=== PATIENT | male | born 1935 | race Caucasian/White ===

== ENCOUNTER → 2018-02-27 | Outpatient (CLI) | payer MEDICARE ==
[~2018-02-27] MED LIST: ATENOLOL50 MG PO; COREG12.5 MG PO; COUMADIN2.5 MG PO; DIGOXIN250 MCG PO; ENALAPRIL-HCTZ1 EACH PO; FUROSEMIDE40 MG PO; LISINOPRIL10 MG PO; PLAVIX75 MG PO
--- NOTE | 2018-03-02 07:36 | Diagnostic Imaging Report ---
ADDENDUM #1 Dose modulation, iterative reconstruction, and/or weight based adjustment of the mA/kV was utilized to reduce the radiation dose to as low as reasonably achievable Signed by: Dr. Amanda Cano M.D. on 03/02/2018 9:46 AM ADDENDUM #2 Dose modulation, iterative reconstruction, and/or weight based adjustment of the mA/kV was utilized to reduce the radiation dose to as low as reasonably achievable. Signed by: Dr. Amanda Cano M.D. on 03/02/2018 3:28 PM ORIGINAL REPORT EXAMINATION: CT of the lumbar spine HISTORY: Low back pain radiating to the lower extremities with numbness and tingling for the last 5 days COMPARISON:None available TECHNIQUE: Multidetector helical axial images were obtained without contrast from L1 to S1. The images were reconstructed using bone and soft tissue algorithms and were viewed in axial, sagittal, and coronal planes. FINDINGS: Alignment: Normal alignment and lordosis. Vertebral bodies: Normal height and density. Paraspinal muscles: Normal. Intervertebral disks: L1-L2: Minimal symmetric disc bulge and retrolisthesis without canal or foraminal stenoses. L2-L3: Normal. L3-L4: Normal. L4-L5: Minimal symmetric disc bulge and facet arthrosis without canal or foraminal stenoses. L5-S1: Slightly asymmetric to the right disc osteophyte and mild facet arthrosis. Mild foraminal narrowing on the right side.. Sacroiliac joints: Degenerative changes with bridging osteophyte on the left side. IMPRESSION: Mild degenerative foraminal stenosis at L5-S1 without evidence of nerve root compression. Otherwise no significant degenerative changes, no spinal canal or foraminal stenosis. Signed by: Dr. Amanda Cano M.D. on 03/02/2018 7:32 AM
== END ==
LOC: CT 15:09
PROVIDERS: ATTEND Family Medicine
DX: S39.012A Strain of muscle, fascia and tendon of lower back, initial encounter (principal)
CPT/HCPCS: 72131

== ENCOUNTER → 2018-03-27 | Day surgery (SDC) | payer MEDICARE ==
[2018-03-26 14:38] LABS: BASOPHILS # (AUTO) 0.1 (0.0-0.1); BASOPHILS % 0.6 % (0.0-1.0); EOSINOPHILS # (AUTO) 0.3 (0.0-0.4); EOSINOPHILS % 3.9 % (0.0-6.0); HEMATOCRIT 49.8 % (38.2-49.6); HEMOGLOBIN 16.2 g/dL (14.0-18.0); LYMPHOCYTES # (AUTO) 1.2 (1.0-3.2); LYMPHOCYTES % 14.4 % (18.0-39.1); MEAN CORPUSCULAR HGB CONC 32.5 g/dL (31-35); MEAN CORPUSCULAR VOLUME 86.2 fL (81-99); MONOCYTES # (AUTO) 1.1 (0.2-0.8); NEUTROPHILS # (AUTO) 5.4 (2.1-6.9); NEUTROPHILS % 66.6 % (38.7-80.0); PLATELET COUNT 200 x10e3/uL (140-360); RED BLOOD COUNT 5.78 x10e6/uL (4.3-5.7); RED CELL DISTRIBUTION WIDTH 14.6 % (11.7-14.4)
[2018-03-26 14:53] LABS: INR 1.19; PROTHROMBIN TIME 14.2 seconds (11.9-14.5)
[2018-03-26 14:58] LABS: ALANINE AMINOTRANSFERASE 32 IU/L (0-55); ALBUMIN 3.8 g/dL (3.5-5.0); ALBUMIN/GLOBULIN RATIO 1.1 (0.8-2.0); ALKALINE PHOSPHATASE 67 IU/L (40-150); ANION GAP 12.3 mmol/L (8-16); BLOOD UREA NITROGEN 12 mg/dL (7-26); BUN/CREATININE RATIO 13 (6-25); CALCIUM 9.7 mg/dL (8.4-10.2); CARBON DIOXIDE 31 mmol/L (22-29); CHLORIDE 100 mmol/L (98-107); CHOL/HDL RATIO 3.4 (3.9-4.7); CHOLESTEROL 105 MD/DL (0-199); CREATININE, SERUM 0.93 mg/dL (0.72-1.25); EST GLOMERULAR FILTRATION RATE > 60 ML/MIN (60-); GLUCOSE 98 mg/dL (74-118); HDL CHOLESTEROL 31 MG/DL (40-60); LDL CHOLESTEROL 46 MG/DL (60-130); POTASSIUM 4.3 mmol/L (3.5-5.1); SODIUM 139 mmol/L (136-145); TRIGLYCERIDES 142 MG/DL (0-149)
[~2018-03-27] VITALS: Ht 172.7 cm; Wt 83.9 kg
[~2018-03-27] MED LIST changes: +ALEVE220 M1; +ASPIRIN81 MG; +ATORVASTATIN CA20 MG PO; +FENTANYL CITRATE/PF 100MCG/2 ML INJ ONE; +HEPARIN SOD/SOD CHLORIDE 2,000 ML ONE; +IOPAMIDOL 370 MG/ML 200 ML INFUS..BTL INJ ONE; +LIDOCAINE HCL 2% LOCAL 20 ML VIAL ONE; +MIDAZOLAM HCL 2 MG/2 ML VIAL ONE; +OMEGA 3 FISH O1 EACH; +SODIUM CHLORIDE 0.9% 1000ML 1,000 ML ONE; +STOOL SOFT-STI1 EACH; +TEMAZEPAM15 MG
[2018-03-27 12:00] VITALS: BP 162/82
[2018-03-27 17:11] VITALS: BP 152/87
[2018-03-27 17:15] VITALS: BP 159/87
[2018-03-27 17:30] VITALS: BP 147/109
[2018-03-27 17:45] VITALS: BP 160/93
[2018-03-27 18:00] VITALS: BP_SYST 170; BP_SYST 172; BP_DIAS 80; BP_DIAS 90
--- NOTE | 2018-03-28 00:19 | Operative Report ---
DATE OF PROCEDURE: March 27, 2018 INDICATIONS: Coronary artery disease. Abnormal stress test. PROCEDURES PERFORMED 1. Left heart catheterization. 2. Selective coronary angiography. 3. Left ventriculography. 4. Deployment of right groin VASCADE closure device. COMPLICATIONS: None. RECOMMENDATIONS: Dual antiplatelet therapy. Assessment for viability of the anterior wall. Access obtained in the right femoral artery. A 6-Irish sheath was placed. Diagnostic coronary angiogram revealed patent left main. Left anterior descending artery is completely occluded in its proximal portion. Circumflex was codominant, 50% or less stenosis in an obtuse margin branch. Right coronary artery was codominant, less than 20% stenosis. LV end-diastolic pressure of 10. LV ejection fraction 25% with dyskinesis of the anterior apical wall, grade 2 collaterals from the right and left coronary system supplied the distal LAD faintly. Right groin repaired using VASCADE. Patient was discharged home the same day. Job#: [id number] ROSCOE
== END | disposition home or self-care (01) ==
LOC: CATH LAB 11:50
PROVIDERS: ATTEND Internal Medicine Interventional Cardiology
DX: I25.118 Atherosclerotic heart disease of native coronary artery with other forms of angina pectoris (principal); I48.91 Unspecified atrial fibrillation; I11.0 Hypertensive heart disease with heart failure; I50.9 Heart failure, unspecified; R94.39 Abnormal result of other cardiovascular function study; G47.33 Obstructive sleep apnea (adult) (pediatric); Z01.812 Encounter for preprocedural laboratory examination; Z79.01 Long term (current) use of anticoagulants; Z79.82 Long term (current) use of aspirin; Z86.74 Personal history of sudden cardiac arrest; Z95.810 Presence of automatic (implantable) cardiac defibrillator; Z82.49 Family history of ischemic heart disease and other diseases of the circulatory system
CPT/HCPCS: 36415; 80053; 80061; 85025; 85610; 93458; C1760; J2001; J2250; J7030; Q9967

== ENCOUNTER → 2018-04-13 | Outpatient (CLI) | payer MEDICARE ==
[~2018-04-13] MED LIST changes: -FENTANYL CITRATE/PF 100MCG/2 ML INJ ONE; -HEPARIN SOD/SOD CHLORIDE 2,000 ML ONE; -IOPAMIDOL 370 MG/ML 200 ML INFUS..BTL INJ ONE; -LIDOCAINE HCL 2% LOCAL 20 ML VIAL ONE; -MIDAZOLAM HCL 2 MG/2 ML VIAL ONE; +REGADENOSON 0.4 MG/5 ML SYR IV ONE; -SODIUM CHLORIDE 0.9% 1000ML 1,000 ML ONE
== END ==
LOC: NM 10:39
PROVIDERS: ATTEND Internal Medicine Interventional Cardiology
DX: I50.9 Heart failure, unspecified (principal); I20.9 Angina pectoris, unspecified
CPT/HCPCS: 78452; 93017; A9505; A9502

== ENCOUNTER 2019-12-20 08:24 | Emergency (ER) | payer MEDICARE ==
[~2019-12-20] VITALS: Ht 172.7 cm; Wt 83.9 kg
[~2019-12-20 08:24] MED LIST changes: -REGADENOSON 0.4 MG/5 ML SYR IV ONE
--- OUTSIDE RECORDS SUMMARY | 2019-12-20 08:43 | XMS REPORT | Continuity of Care Document ---
Author Author [facility] t Organization [facility] Address [address] [place] [address] Phone Unavailable Care Team Providers Care Professional Employer Consultant Name Role Phone CAMACHO VIDES Attphys Unavailable Problems This patient has no known problems. Allergies, Adverse Reactions, Alerts This patient has no known allergies or adverse reactions. Medications This patient has no known medications. Procedures This patient has no known procedures. Results Test Description Test Time Test Comments Results Result Comments Source CT LUMBAR SPINE WO 2018-03-02 07:26:00 [facility] [address] [place], [place] [address] Patient Name: ZURDO STREETER MR #: [id number] : 1935 Age/Sex: 82/M Req #: [id number] Adm Physician: Ordered by: CAMACHO VIDES DO Report #: [id number] Location: CT Room/Bed: Procedure: [id number] CT/CT LUMBAR SPINE WO Exam Date: 02/27/18 Exam Time: 1551 REPORT STATUS: Signed ADDENDUM #1 Dose modulation, iterative reconstruction, and/or weight based adjustment of the mA/kV was utilized to reduce the radiation dose to as low as reasonably achievable Signed by: Dr. Schuyler Cano M.D. on 03/02/2018 9:46 AM ADDENDUM #2 Dose modulation, iterative reconstruction, and/or weight based adjustment of the mA/kV was utilized to reduce the radiation dose to as low as reasonably achievable. Signed by: Dr. Schuyler Cano M.D. on 03/02/2018 3:28 PM ORIGINAL REPORT EXAMINATION: CT of the lumbar spine HISTORY: Low back pain radiating to the lower extremities with numbness and tingling for the last 5 days COMPARISON:None available TECHNIQUE: Multidetector helical axial images were obtained without contrast from L1 to S1. The images were reconstructed using bone and soft tissue algorithms and were viewed in axial, sagittal, and coronal planes. FINDINGS: Alignment: Normal alignment and lordosis. Vertebral bodies: Normal height and density. Paraspinal muscles: Normal. Intervertebral disks: L1-L2: Minimal symmetric disc bulge and retrolisthesis without canal or foraminal stenoses. L2-L3: Normal. L3-L4: Normal. L4-L5: Minimal symmetric disc bulge and facet arthrosis without canal or foraminal stenoses. L5-S1: Slightly asymmetric to the right disc osteophyte and mild facet arthrosis. Mild foraminal narrowing on the right side.. Sacroiliac joints: Degenerative changes with bridging osteophyte on the left side. IMPRESSION: Mild degenerative foraminal stenosis at L5-S1 without evidence of nerve root compression. Otherwise no significant degenerative changes, no spinal canal or foraminal stenosis. Signed by: Dr. Schuyler Cano M.D. on 03/02/2018 7:32 AM Dictated By: SCHUYLER CANO MD [id number] Transcribed By: MATY on 03/02/18 1777 COPY TO: CAMACHO VIDES DO
[2019-12-20] MEDS ORDERED: SODIUM CHLORIDE 0.9% 1000ML 1,000 ML IV STA ×2 (08:44→10:16)
[2019-12-20] MEDS ORDERED: ASPIRIN 81 MG CHEW TAB PO ONE (08:45)
--- NOTE | 2019-12-20 08:59 | Emergency Department Note ---
History of Present Illnes History of Present Illness Chief Complaint: COVID PUI History of Present Illness This is a 84 year old male . 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 Any updates have been documented here. Past Medical History Recent Fever: No Clinical Suspicion of Infectio: Yes New/Unexplained Change in Ment: No Other Medical History: PROSTAT pacemaker Other Surgery: HEMROIDS, SKIN CA, CARDIAC STENTS Social History Smoking Cessation: Never Smoker Alcohol Use: None Any Illegal Drug Use: No TB Exposure/Symptoms: No Physically hurt or threatened: No Family History Family history of heart diseas: No Other Last Tetanus: UTD Any Pre-Existing Lines (PICC,: No Review of Systems Review of Systems Constitutional: weakness EENTM: no symptoms Cardiovascular: other (minimal chest pressure ) Respiratory: other (minial sob) Gastrointestinal: no symptoms Genitourinary: no symptoms Musculoskeletal: no symptoms Neurological: no symptoms, other (near syncope reported to day) Psychological: no symptoms Endocrine: no symptoms Hematological/Lymphatic: no symptoms Review of other systems All other systems reviewed and negative. Physical Exam Related Data Allergies: Coded Allergies: No Known Allergies (Unverified , 07/06/13) Vital signs reviewed: Yes Physical Exam CONSTITUTIONAL Constitutional: well-developed, well-nourished HENT HENT: normocephalic, atraumatic, oropharynx clear/moist, nose normal HENT L/R: left ext ear normal, right ext ear normal EYES Eyes: PERRL, conjunctivae normal NECK Neck: ROM normal PULMONARY Pulmonary: effort normal, breath sounds normal; respiratory distress, rales, rhonchi, chest tenderness CARDIOVASCULAR Cardiovascular: regular rhythm, heart sounds normal, capillary refill normal, normal rate; LLE edema, RLE edema GASTROINTESTINAL Abdominal: soft, nontender, bowel sounds normal GENITOURINARY Genitourinary: exam deferred SKIN Skin: warm, dry MUSCULOSKELETAL Musculoskeletal: ROM normal NEUROLOGICAL Neurological: alert, oriented x 3, no gross motor or sensory deficits, other (reported near syncope today) PSYCHOLOGICAL Psychological: mood/affect normal, judgement normal Results Laboratory Laboratory Laboratory Tests Test 12/20/19 10:42 12/20/19 09:48 12/20/19 09:06 Group A Streptococcus Screen Negative (NEGATIVE) Lactic Acid Level 2.0 mmol/L (0.5-2.0) White Blood Count 6.99 x10e3/uL (4.8-10.8) Red Blood Count 5.54 x10e6/uL (4.3-5.7) Hemoglobin 15.2 g/dL (14.0-18.0) Hematocrit 47.7 % (38.2-49.6) Mean Corpuscular Volume 86.1 fL (81-99) Mean Corpuscular Hemoglobin 27.4 pg (28-32) Mean Corpuscular Hemoglobin Concent 31.9 g/dL (31-35) Red Cell Distribution Width 15.1 % (11.7-14.4) Platelet Count 153 x10e3/uL (140-360) Neutrophils (%) (Auto) 93.3 % (38.7-80.0) Lymphocytes (%) (Auto) 3.6 % (18.0-39.1) Monocytes (%) (Auto) 0.7 % (4.4-11.3) Eosinophils (%) (Auto) 1.6 % (0.0-6.0) Basophils (%) (Auto) 0.4 % (0.0-1.0) Neutrophils # (Auto) 6.5 (2.1-6.9) Lymphocytes # (Auto) 0.3 (1.0-3.2) Monocytes # (Auto) 0.1 (0.2-0.8) Eosinophils # (Auto) 0.1 (0.0-0.4) Basophils # (Auto) 0.0 (0.0-0.1) Absolute Immature Granulocyte (auto 0.03 x10e3/uL (0-0.1) Prothrombin Time 19.4 seconds (11.9-14.5) Prothromb Time International Ratio 1.53 Activated Partial Thromboplast Time 27.5 seconds (23.8-35.5) Urine Color Yellow (YELLOW) Urine Clarity Clear (CLEAR) Urine pH 7 (5 - 7) Urine Specific [place] 1.020 (1.010-1.025) Urine Protein Negative (NEGATIVE) Urine Glucose (UA) Negative (NEGATIVE) Urine Ketones Negative (NEGATIVE) Urine Blood Negative (NEGATIVE) Urine Nitrite Negative (NEGATIVE) Urine Bilirubin Negative (NEGATIVE) Urine Urobilinogen 0.2 mg/dL (0.2 - 1) Urine Leukocyte Esterase Negative (NEGATIVE) Urine RBC None /HPF (0-5) Urine WBC 0-5 /HPF (0-5) Urine Epithelial Cells Rare /LPF (NONE) Urine Bacteria Rare /HPF (NONE) Sodium Level 143 mmol/L (136-145) Potassium Level 3.6 mmol/L (3.5-5.1) Chloride Level 105 mmol/L (98-107) Carbon Dioxide Level 25 mmol/L (22-29) Anion Gap 16.6 mmol/L (8-16) Blood Urea Nitrogen 12 mg/dL (7-26) Creatinine 1.09 mg/dL (0.72-1.25) Estimat Glomerular Filtration Rate > 60 ML/MIN (60-) BUN/Creatinine Ratio 11 (6-25) Glucose Level 98 mg/dL (74-118) Calcium Level 9.6 mg/dL (8.4-10.2) Magnesium Level 1.6 MG/DL (1.3-2.1) Total Bilirubin 2.3 mg/dL (0.2-1.2) Aspartate Amino Transf (AST/SGOT) 19 IU/L (5-34) Alanine Aminotransferase (ALT/SGPT) 23 IU/L (0-55) Alkaline Phosphatase 71 IU/L (40-150) Creatine Kinase 56 IU/L (30-200) Creatine Kinase MB < 1.00 ng/mL (0-4.3) Troponin I < 0.05 ng/mL (0.0-0.40) B-Type Natriuretic Peptide 464.5 pg/mL (0-100) Total Protein 7.3 g/dL (6.5-8.1) Albumin 4.0 g/dL (3.5-5.0) Globulin 3.3 g/dL (2.3-3.5) Albumin/Globulin Ratio 1.2 (0.8-2.0) Thyroid Stimulating Hormone (TSH) 2.665 uIU/mL (0.350-4.940) Laboratory Tests Test 12/20/19 09:06 White Blood Count 6.99 x10e3/uL (4.8-10.8) Red Blood Count 5.54 x10e6/uL (4.3-5.7) Hemoglobin 15.2 g/dL (14.0-18.0) Hematocrit 47.7 % (38.2-49.6) Mean Corpuscular Volume 86.1 fL (81-99) Mean Corpuscular Hemoglobin 27.4 pg (28-32) Mean Corpuscular Hemoglobin Concent 31.9 g/dL (31-35) Red Cell Distribution Width 15.1 % (11.7-14.4) Platelet Count 153 x10e3/uL (140-360) Neutrophils (%) (Auto) 93.3 % (38.7-80.0) Lymphocytes (%) (Auto) 3.6 % (18.0-39.1) Monocytes (%) (Auto) 0.7 % (4.4-11.3) Eosinophils (%) (Auto) 1.6 % (0.0-6.0) Basophils (%) (Auto) 0.4 % (0.0-1.0) Neutrophils # (Auto) 6.5 (2.1-6.9) Lymphocytes # (Auto) 0.3 (1.0-3.2) Monocytes # (Auto) 0.1 (0.2-0.8) Eosinophils # (Auto) 0.1 (0.0-0.4) Basophils # (Auto) 0.0 (0.0-0.1) Absolute Immature Granulocyte (auto 0.03 x10e3/uL (0-0.1) Prothrombin Time 19.4 seconds (11.9-14.5) Prothromb Time International Ratio 1.53 Activated Partial Thromboplast Time 27.5 seconds (23.8-35.5) Urine Color Yellow (YELLOW) Urine Clarity Clear (CLEAR) Urine pH 7 (5 - 7) Urine Specific [place] 1.020 (1.010-1.025) Urine Protein Negative (NEGATIVE) Urine Glucose (UA) Negative (NEGATIVE) Urine Ketones Negative (NEGATIVE) Urine Blood Negative (NEGATIVE) Urine Nitrite Negative (NEGATIVE) Urine Bilirubin Negative (NEGATIVE) Urine Urobilinogen 0.2 mg/dL (0.2 - 1) Urine Leukocyte Esterase Negative (NEGATIVE) Urine RBC None /HPF (0-5) Urine WBC 0-5 /HPF (0-5) Urine Epithelial Cells Rare /LPF (NONE) Urine Bacteria Rare /HPF (NONE) Sodium Level 143 mmol/L (136-145) Potassium Level 3.6 mmol/L (3.5-5.1) Chloride Level 105 mmol/L (98-107) Carbon Dioxide Level 25 mmol/L (22-29) Anion Gap 16.6 mmol/L (8-16) Blood Urea Nitrogen 12 mg/dL (7-26) Creatinine 1.09 mg/dL (0.72-1.25) Estimat Glomerular Filtration Rate > 60 ML/MIN (60-) BUN/Creatinine Ratio 11 (6-25) Glucose Level 98 mg/dL (74-118) Calcium Level 9.6 mg/dL (8.4-10.2) Magnesium Level 1.6 MG/DL (1.3-2.1) Total Bilirubin 2.3 mg/dL (0.2-1.2) Aspartate Amino Transf (AST/SGOT) 19 IU/L (5-34) Alanine Aminotransferase (ALT/SGPT) 23 IU/L (0-55) Alkaline Phosphatase 71 IU/L (40-150) Creatine Kinase 56 IU/L (30-200) Creatine Kinase MB < 1.00 ng/mL (0-4.3) Troponin I < 0.05 ng/mL (0.0-0.40) B-Type Natriuretic Peptide 464.5 pg/mL (0-100) Total Protein 7.3 g/dL (6.5-8.1) Albumin 4.0 g/dL (3.5-5.0) Globulin 3.3 g/dL (2.3-3.5) Albumin/Globulin Ratio 1.2 (0.8-2.0) Thyroid Stimulating Hormone (TSH) 2.665 uIU/mL (0.350-4.940) Lab results reviewed: Yes Imaging Impressions CXR IMPRESSION: Mild elevation of the right hemidiaphragm. Otherwise, no acute cardiac pulmonary process identified. Signed by: Dr. Loyd Hodge MD on 12/20/2019 10:[address] brain Impression: No acute intracranial abnormalities. Nonspecific inflammatory changes of the sphenoid sinuses Chronic findings: 1. Mild generalized volume loss. 2. Mild supratentorial white matter small vessel ischemic changes. Signed by: DR Pascual Devi M.D. 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 Assessment & Plan Reassessment Reassessment time: 08:57 Reassessment 84y m presented to ed c/o generalized weakness fatigue n/v x2 sx- reported near syncope today- reports has had some minimal chest pressure - no lower ext sw elling noted o2 sat 92% rm air - sts has had slight cough - suspect infection - lab ekg cxr ct brain blood cultures lactic flu strep covid ordered pt medicated w/ ns 1 liter and asa suspect sepsis SIRs criteria meet hr 92 resp 28 - o2 sat 92% blood culture / lactic / zosyn ordered severe sepsis Venkatesh 2.3 pt medicated w/ lovenox and dig level ordered spoke w/ Dr Marquez will accept transfer - [facility] Assessment & Plan Final Impression: (1) Sepsis (2) Near syncope (3) Weakness Assessment & Plan discussed lab ekg cxr ct brain results plan of care and need for admit / transfer spoke w/ Dr Felipe Echevarria at [facility] Depart Disposition: TRANS TO OTHER [facility] Home Meds Reported Medications Carvedilol (CARVEDILOL) 12.5 Mg Tablet, 12.5 MG PO BID 12/20/19 Warfarin Sodium (WARFARIN SODIUM) 2 Mg Tablet, 2 MG PO DAILY 12/20/19 Digoxin (DIGOXIN) 125 Mcg Tablet, 250 MCG PO DAILY 12/20/19 Aspirin (ASPIRIN) 81 Mg Tab.chew 03/26/18 Atorvastatin Calcium (ATORVASTATIN CALCIUM) 20 Mg Tablet, 40 MG PO HS, #30 TAB 03/26/18 Furosemide (FUROSEMIDE) 40 Mg Tablet, 40 MG PO Daily, #30 TAB 03/17/15 Lisinopril (LISINOPRIL) 10 Mg Tablet, 5 MG PO DAILY, #30 TAB 03/17/15 Discontinued Reported Medications Amiodarone Hcl (AMIODARONE HCL) 200 Mg Tablet, 20 MG PO DAILY 12/20/19 [place]-3 Fatty Acids/Fish Oil (OMEGA 3 FISH OIL SOFTGEL) 1 Each Capsule. 03/26/18 Naproxen Sodium (ALEVE) 220 Mg Capsule 03/26/18 Sennosides/Docusate Sodium (STOOL SOFT-STIMULANT LAX TAB) 1 Each Tablet 03/26/18 Temazepam (TEMAZEPAM) 15 Mg Capsule 03/26/18 Carvedilol (COREG) 12.5 Mg Tab, 12.5 MG PO BID 03/17/15 Digoxin (DIGOXIN) 250 Mcg Tablet, 0.25 MCG PO DAILY 03/17/15 Warfarin Sodium (COUMADIN) 2.5 Mg Tablet, 1 TAB PO DAILY 05/19/12 Medications in the ED Aspirin 81 mg PRN ONCE PO ; Start 12/20/19 at 08:45; Stop 12/20/19 at 08:51; Status DC Sodium Chloride 1,000 ml @ 0 mls/hr Q0M STAT IV ; Start 12/20/19 at 08:44; Stop 12/20/19 at 08:48; Status DC LAURIE SAGE Dec 20, 2019 08:59
[2019-12-20 09:18] LABS: BASOPHILS % 0.4 % (0.0-1.0); EOSINOPHILS # (AUTO) 0.1 (0.0-0.4); EOSINOPHILS % 1.6 % (0.0-6.0); HEMATOCRIT 47.7 % (38.2-49.6); HEMOGLOBIN 15.2 g/dL (14.0-18.0); LYMPHOCYTES # (AUTO) 0.3 (1.0-3.2); LYMPHOCYTES % 3.6 % (18.0-39.1); MEAN CORPUSCULAR HEMOGLOBIN 27.4 pg (28-32); MEAN CORPUSCULAR HGB CONC 31.9 g/dL (31-35); MEAN CORPUSCULAR VOLUME 86.1 fL (81-99); MONOCYTES # (AUTO) 0.1 (0.2-0.8); MONOCYTES % 0.7 % (4.4-11.3); NEUTROPHILS # (AUTO) 6.5 (2.1-6.9); NEUTROPHILS % 93.3 % (38.7-80.0); PLATELET COUNT 153 x10e3/uL (140-360); RED BLOOD COUNT 5.54 x10e6/uL (4.3-5.7); RED CELL DISTRIBUTION WIDTH 15.1 % (11.7-14.4)
[2019-12-20] MEDS ORDERED: PIPER-TAZ 3.375 GM 50 ML IV ONE (09:30)
[2019-12-20] MEDS ORDERED: DIGOXIN125 MCG PO (09:31)
[2019-12-20] MEDS ORDERED: CARVEDILOL12.5 MG PO (09:31)
[2019-12-20] MEDS ORDERED: AMIODARONE HCL200 MG PO (09:31)
[2019-12-20] MEDS ORDERED: WARFARIN SODIUM2 MG PO (09:31)
[2019-12-20 09:38] LABS: INR 1.53; PARTIAL THROMBOPLASTIN TIME 27.5 seconds (23.8-35.5); PROTHROMBIN TIME 19.4 seconds (11.9-14.5)
[2019-12-20 09:39] LABS: ALANINE AMINOTRANSFERASE 23 IU/L (0-55); ALBUMIN/GLOBULIN RATIO 1.2 (0.8-2.0); ALKALINE PHOSPHATASE 71 IU/L (40-150); ANION GAP 16.6 mmol/L (8-16); BLOOD UREA NITROGEN 12 mg/dL (7-26); BUN/CREATININE RATIO 11 (6-25); CALCIUM 9.6 mg/dL (8.4-10.2); CARBON DIOXIDE 25 mmol/L (22-29); CHLORIDE 105 mmol/L (98-107); CREATINE KINASE 56 IU/L (30-200); CREATININE, SERUM 1.09 mg/dL (0.72-1.25); EST GLOMERULAR FILTRATION RATE > 60 ML/MIN (60-); GLUCOSE 98 mg/dL (74-118); MAGNESIUM 1.6 MG/DL (1.3-2.1); POTASSIUM 3.6 mmol/L (3.5-5.1); SODIUM 143 mmol/L (136-145)
[2019-12-20 09:59] LABS: CREATINE KINASE MB < 1.00 ng/mL (0-4.3)
[2019-12-20 10:03] LABS: BILIRUBIN,URINE NEGATIVE (NEGATIVE); CLARITY,URINE CLEAR (CLEAR); COLOR,URINE YELLOW (YELLOW); KETONES,URINE NEGATIVE (NEGATIVE); LEUKOCYTE ESTERASE ,URINE NEGATIVE (NEGATIVE); NITRITE,URINE NEGATIVE (NEGATIVE); PROTEIN,URINE DIPSTICK NEGATIVE (NEGATIVE); URINE UROBILINOGEN 0.2 mg/dL (0.2 - 1)
--- NOTE | 2019-12-20 10:04 | Diagnostic Imaging Report ---
EXAM: CHEST SINGLE (PORTABLE) DATE: 12/20/2019 9:45 AM INDICATION: Weakness COMPARISON: None available. FINDINGS: Left-sided AICD identified in place. There is mild elevation of the right hemidiaphragm and associated right basilar atelectasis. There is no evidence for large focal consolidation, pneumothorax, or significant pleural effusion. The cardiomediastinal silhouette appears magnified by technique but otherwise unremarkable. No acute osseous abnormality is identified. There are surrounding soft tissues are unremarkable. IMPRESSION: Mild elevation of the right hemidiaphragm. Otherwise, no acute cardiac pulmonary process identified. Signed by: Dr. Loyd Hodge MD on 12/20/2019 10:00 AM
[2019-12-20] MEDS ORDERED: ENOXAPARIN INJ 80 MG/0.8 ML SYR SC STA (10:12)
[2019-12-20 10:13] LABS: THYROID STIMULATING HORMONE 2.665 uIU/mL (0.350-4.940)
[2019-12-20 10:17] LABS: BACTERIA,URINE RARE /HPF; EPITHELIAL CELLS,URINE RARE /LPF; WBC,URINE (MAN) 0-5 /HPF (0-5)
--- NOTE | 2019-12-20 10:45 | Diagnostic Imaging Report ---
History:Weakness Comparison studies:None Technique: Axial images were obtained from the skull base to the vertex. Coronal and sagittal images reconstructed from the axial data. Intravenous contrast: None Dose modulation, iterative reconstruction, and/or weight based adjustment of the mA/kV was utilized to reduce the radiation dose to as low as reasonably achievable. Findings: Scalp/skull: No abnormalities. Extra-axial spaces: No masses. No fluid collections. Brain sulci: Mildly prominent. Ventricles: Mild compensatory dilatation. No hydrocephalus. Parenchyma: Scattered subtle hypodensities in the supratentorial white matter are small vessel ischemic changes. 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 No masses, hemorrhage, acute or chronic cortical vascular insults. Sellar/suprasellar region: No abnormalities. Craniocervical junction: Patent foramen magnum. No Chiari one malformation. Incidental findings: Atherosclerotic calcifications in the carotid siphons and vertebral arteries . Partial opacification of the bilateral right more the left sphenoid sinuses. Impression: No acute intracranial abnormalities. Nonspecific inflammatory changes of the sphenoid sinuses Chronic findings: 1. Mild generalized volume loss. 2. Mild supratentorial white matter small vessel ischemic changes. Signed by: DR Pascual Devi M.D. on 12/20/2019 10:41 AM
[2019-12-20 11:09] LABS: STREPTOCOCCUS GRP A ANTIGEN NEGATIVE (NEGATIVE)
--- NOTE | 2019-12-20 11:21 | NUR ---
called [facility] for transport.
[2019-12-20 11:22] LABS: INFLUENZAE A&B ANTIGEN (RAPID) NEGATIVE (NEGATIVE)
--- NOTE | 2019-12-20 11:54 | NUR ---
CALLING REPORT TO [facility]
--- NOTE | 2019-12-20 12:02 | NUR ---
ATTEMPTED TO CALL REPORT AND WAS ADVISED THAT THEY COULD NOT ACCEPT THE PATIENT DUE TO STAFFING. WILL ESCALATE TO [facility] AND [facility]VISE.
[2019-12-20 12:09] LABS: ANISOCYTOSIS SLIG; EOSINOPHILS % (MANUAL) 1 % (0-7); LYMPHOCYTES % (MANUAL) 4 % (19-48); MONOCYTES % (MANUAL) 1 % (3.4-9.0); NEUTROPHILS % (MANUAL) 94 % (40-74); PLATELET ESTIMATE ADEQUATE; PLATELET MORPHOLOGY COMMENT NORMAL; RBC MORPHOLOGY COMMENT NORMAL
[2019-12-20 13:09] VITALS: BP 124/68
--- NOTE | 2019-12-20 13:09 | NUR ---
REPORT TO SOHAN AT [facility].
== END 2019-12-20 13:12 | disposition other institution (70) ==
LOC: ER 08:40
DX: R53.1 Weakness (principal); A41.9 Sepsis, unspecified organism; R07.89 Other chest pain; R55 Syncope and collapse; Z11.59 Encounter for screening for other viral diseases; Z95.5 Presence of coronary angioplasty implant and graft; Z85.828 Personal history of other malignant neoplasm of skin
CPT/HCPCS: 36415; 70450; 71045; 80053; 80162; 81001; 82550; 82553; 83518; 83605; 83735; 83880; 84443; 84484; 85025; 85610; 85730; 87040; 87070; 87071; 87086; 87186; 87205; 87400; 87635; 93005; 99284; J1650; J2543; J7030

== ENCOUNTER → 2020-02-11 | Outpatient (CLI) | payer MEDICARE ==
[~2020-02-11] MED LIST changes: +AMIODARONE HCL200 MG PO; +CARVEDILOL12.5 MG PO; +DIGOXIN125 MCG PO; +IOPAMIDOL 370 MG/ML 200 ML INFUS..BTL INJ ONE; +SODIUM CHLORIDE 0.9% 100 ML ONE; +SODIUM CHLORIDE 0.9% 500ML 500 ML ONE; +WARFARIN SODIUM2 MG PO
[2020-02-11 08:15] LABS: CREATININE, SERUM 1.25 mg/dL (0.72-1.25)
--- NOTE | 2020-02-11 10:07 | Diagnostic Imaging Report ---
Abdomen and Pelvis CTA WITH IV CONTRAST. INDICATION: Abdominal pain, claudication COMPARISON: None. TECHNIQUE: Abdomen and pelvis was scanned utilizing a multidetector helical scanner from the lung base to the pubic symphysis before and after administration of IV contrast. Coronal and sagittal reformations were obtained. 3D post-processing of the images was performed, and the post-processed images were used in interpretation. CTA runoff protocol was performed. IV CONTRAST: 100mL of Isovue 370 ORAL CONTRAST: None RADIATION DOSE: Total DLP: 346 mGy*cm FINDINGS: VESSELS: There are moderate calcified and noncalcified atherosclerotic plaques in the aorta and its major branches. There is no evidence of a flap within the aorta to suggest a dissection. 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 The common hepatic artery arises from the SMA. The SMA and CALI are widely patent. There is a single right renal artery and a single left renal artery, both of which are patent. NON-VASCULAR: LOWER THORAX: Trace right pleural effusion. Multichamber cardiomegaly. Smooth interlobular septal thickening compatible with mild pulmonary interstitial edema. No focal lung base consolidation. Partially visualized AICD leads. HEPATOBILIARY: No focal liver lesion. Cholelithiasis without CT evidence of cholecystitis. SPLEEN: No splenomegaly. PANCREAS: No focal masses or ductal dilatation. ADRENALS: No adrenal nodules. KIDNEYS/URETERS: Exophytic left lower pole renal cysts measure up to 3.2 cm. No hydronephrosis or renal calculi. PELVIC ORGANS/BLADDER: Radiopaque fiducials of the prostate. PERITONEUM / RETROPERITONEUM: No free air or fluid. LYMPH NODES: No lymphadenopathy. GI TRACT: Diverticulosis without CT evidence of diverticulitis. No abnormal bowel thickening. No bowel obstruction. BONES AND SOFT TISSUES: No acute osseous injury. IMPRESSION: No aortic dissection or abdominal aortic aneurysm. Moderate scattered aortic atherosclerotic calcifications without significant associated luminal narrowing. 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 Cardiomegaly, pulmonary interstitial edema, and trace right pleural effusion. Cholelithiasis without CT evidence of cholecystitis. Signed by: Liu Palacio MD on 02/11/2020 10:04 AM
== END ==
LOC: CT 07:38
PROVIDERS: ATTEND Internal Medicine Interventional Cardiology
DX: R10.9 Unspecified abdominal pain (principal); I48.20 Chronic atrial fibrillation, unspecified
CPT/HCPCS: 36415; 74174; 82565; 84520; 96360; J7040; J7050; Q9967

== ENCOUNTER 2020-11-21 14:10 | Emergency (ER) | payer MEDICARE ==
[~2020-11-21] VITALS: Ht 172.7 cm; Wt 83.9 kg
[~2020-11-21 14:10] MED LIST changes: -IOPAMIDOL 370 MG/ML 200 ML INFUS..BTL INJ ONE; -SODIUM CHLORIDE 0.9% 100 ML ONE; -SODIUM CHLORIDE 0.9% 500ML 500 ML ONE
[2020-11-21] MEDS ORDERED: AMIODARONE HCL200 MG PO (15:03)
[2020-11-21] MEDS ORDERED: ENTRESTO 49 MG1 EACH (15:03)
[2020-11-21] MEDS ORDERED: KETOROLAC TROMETHAMINE 30 MG/ML VIAL IM STA (15:07)
[2020-11-21] MEDS ORDERED: DEXAMETHASONE 4 MG TAB PO STA (15:07)
[2020-11-21] MEDS ORDERED: ACETAMINOPHEN 325 MG TAB PO ONE (15:15)
[2020-11-21] MEDS ORDERED: ACETAMINOPHEN 325 MG TAB ONE (15:21)
[2020-11-21] MEDS ORDERED: KETOROLAC TROMETHAMINE 30 MG/ML VIAL ONE (15:22)
[2020-11-21] MEDS ORDERED: LIDOCAINE 4% PATCH TP ONE (15:22)
[2020-11-21] MEDS ORDERED: DEXAMETHASONE SOD PHOS 10 MG/1 ML VIAL ONE (15:22)
[2020-11-21] MEDS ORDERED: LIDOPATCH1 EACH TOP (16:24)
[2020-11-21 16:47] VITALS: BP 134/62
[2020-11-22] MEDS ORDERED: LIDOCAINE 4% PATCH TP SCH (09:00)
== END 2020-11-21 16:30 | disposition home or self-care (01) ==
LOC: ER 15:08
DX: M54.5 Low back pain (principal); I10 Essential (primary) hypertension; I50.9 Heart failure, unspecified; Z95.1 Presence of aortocoronary bypass graft; Z95.5 Presence of coronary angioplasty implant and graft; Z95.0 Presence of cardiac pacemaker; Z85.828 Personal history of other malignant neoplasm of skin
CPT/HCPCS: 72100; 73502; 99283; J1885; J8540; J1100

== ENCOUNTER → 2020-12-05 | Emergency (ER) | payer MEDICARE ==
[~2020-12-05] VITALS: Ht 172.7 cm; Wt 83.9 kg
[~2020-12-05] MED LIST changes: +ENTRESTO 49 MG1 EACH; +HYDROCODONE/APAP 10MG-325MG TAB PO ONE; +IBUPROFEN 600 MG TAB PO STA; +LIDOPATCH1 EACH TOP
== END | disposition home or self-care (01) ==
LOC: ER 08:15
DX: M47.896 Other spondylosis, lumbar region (principal); M54.5 Low back pain; I10 Essential (primary) hypertension; I50.9 Heart failure, unspecified; Z95.0 Presence of cardiac pacemaker; Z95.1 Presence of aortocoronary bypass graft; Z95.5 Presence of coronary angioplasty implant and graft; Z85.828 Personal history of other malignant neoplasm of skin
CPT/HCPCS: 99282

== ENCOUNTER → 2021-01-03 | Outpatient (CLI) | payer MEDICARE ==
[~2021-01-03] MED LIST changes: -HYDROCODONE/APAP 10MG-325MG TAB PO ONE; -IBUPROFEN 600 MG TAB PO STA
== END ==
LOC: CT 13:26
PROVIDERS: ATTEND Anesthesiology
DX: M47.896 Other spondylosis, lumbar region (principal)
CPT/HCPCS: 72131